=== PATIENT | female | born 1975 | race African-American/Black ===

== ENCOUNTER 2016-12-24 11:17 | Emergency (ER) | payer OTHER ==
--- NOTE | ~2016-12-24 | CT71 ---
[facility] A Service of [facility] RADIOLOGY TEXT RESULTS PATIENT: JUSTIN CHOW LOCATION: [facility] : 79 UNIT #: [id number] AGE: [address]: Linden Dennison MD SEX: F ORDER DR: [id number] [facility] [address] [place], [place] [address] [id number] MR#: [id number] Acc #: [id number] NAME: JUSTIN CHOW : 1975 SEX: F STUDY DATE/TIME: 12/24/2016 12:41 UNIT: [facility] ROOM: STUDY DESCRIPTION: CT Head Wo Contrast Attending Physician: Linden Dennison M.D. Ordering Physician: Linden Dennison M.D. Primary Care Physician: [facility] MEDICAL IMAGING REPORT This report is preliminary unless electronic signature is present EXAM CT brain without contrast media HISTORY Headache, nausea, dizziness for 3 days. TECHNIQUE Axial imaging of the brain was performed without contrast media. This CT exam was performed with one or more of the following radiation dose reduction techniques: automatic exposure control, adjustment of mA and/or kV according to patient size, and iterative reconstruction. COMPARISON The study is compared to 05/18/2010. FINDINGS Bone and soft tissue windows are reviewed. Ventricular size and configuration is normal. No intra- or extraaxial mass lesions, fluid collections, or mass effect are seen. No focal areas of low attenuation or hemorrhage. The visualized sinuses and mastoid air cells are clear. CONCLUSION 1. Normal. Dictated by... Clemente De La Cruz M.D. THIS IS AN ELECTRONICALLY VERIFIED REPORT Clemente De La Cruz M.D. at 12/25/2016 7:09 AM VENUS/frank TD: 12/24/2016 14:52 [facility] A Service [facility] RADIOLOGY TEXT RESULTS PATIENT: JUSTIN CHOW LOCATION: [facility] : 79 UNIT #: [id number] AGE: [address]: Linden Dennison MD SEX: F ORDER DR: CHERRY #: [id number] MEDICAL IMAGING REPORT Page 1 of 1 COPY
[~2016-12-24 11:17] MED LIST: BACTRIM DS TABL1 TA1 PO; FLEXERIL10 M1 PO; IBUPROFEN IB200 M1 PO; VIBRAMYCIN100 M1 DOB; VOLTAREN75 MG PO
[2016-12-24 12:55] LABS: BASOPHIL% 0.4 % (0-2.5); EOSINOPHIL# 0.2 X10e3 (0-0.7); EOSINOPHIL% 1.5 % (0.0-7.0); HEMATOCRIT 41.8 % (35.0-45.0); HEMOGLOBIN 13.8 gm/dL (12.0-16.0); LYMPHOCYTE# 3.8 X10e3 (1.0-3.5); LYMPHOCYTE% 36.5 % (17.0-45.0); MEAN CELL VOLUME 85.8 FL (83-96); MEAN CORPUSCULAR HEMOGLOBIN 28.4 PG (28-34); MEAN CORPUSCULAR HGB CONC 33.1 g/dL (30-36); MONOCYTE# 0.7 X10e3 (0-1.0); NEUTROPHIL# 5.7 X10e3 (1.5-7.1); NEUTROPHIL% 54.6 % (40-75); PLATELET COUNT 241 X10e3 (140-420); RED BLOOD COUNT 4.88 X10e (3.90-5.30); RED CELL DISTRIBUTION WIDTH 14.1 % (11.0-15.5); WHITE BLOOD COUNT 10.4 X10e3 (4.0-10.5)
[2016-12-24 12:56] LABS: DIFF IND NO
[2016-12-24 13:18] LABS: BUN/CREATININE RATIO 16.66; CALCIUM SERUM 9.4 mg/dL (8.4-10.2); CREATININE SERUM 0.6 mg/dL (0.6-1.4); GLOM FILT RATE Estimated 133.1 mL/min (>60); POTASSIUM 4.1 mmol/L (3.5-5.1)
== END 2016-12-24 14:00 | disposition home or self-care (01) ==
LOC: CED 11:17
PROVIDERS: Emergency Medicine
DX: J32.9 Chronic sinusitis, unspecified (principal); F17.210 Nicotine dependence, cigarettes, uncomplicated; Z90.710 Acquired absence of both cervix and uterus; Z98.51 Tubal ligation status; Z88.0 Allergy status to penicillin
CPT/HCPCS: 36415; 70450; 80048; 85025; 96361; 96374; 99284; J1885